=== PATIENT | male | born 1985 | race Two or more races ===

== ENCOUNTER → 2024-08-05 | Outpatient (CLI) | payer BC, SELFPAY ==
[2024-08-05 14:16] LABS: Basophils # (Auto) 0.1 Thou/mm3 (0.0-0.2); Basophils % (Auto) 1 % (0-2.5); Eosinophils # (Auto) 0.1 Thou/mm3 (0.0-0.5); Eosinophils % (Auto) 2 % (0-10); Hematocrit 43.4 % (41.0-53.0); Hemoglobin 15.4 g/dL (13.5-16.0); Immature Granulocytes % (Auto) 1 % (0-0); Immature Granulocytes Auto 0.04 Thou/mm3 (0.00-0.00); Lymphocytes # (Auto) 1.8 Thou/mm3 (1.0-4.8); Lymphocytes % (Auto) 35 % (10-50); Mean Corpuscular HGB Conc 35.5 g/dl (31.0-37.0); Mean Corpuscular Hemoglobin 31.6 pg (25.0-35.0); Mean Corpuscular Volume 89 fL (80-100); Monocytes # (Auto) 0.5 Thou/mm3 (0.0-0.8); Monocytes % (Auto) 11 % (0-12); Neutrophils # (Auto) 2.5 Thou/mm3 (1.8-7.7); Neutrophils % (Auto) 50 % (37-80); Nucleated Red Blood Cell % 0 /100 WBC (0); Platelet Count 244 Thou/mm3 (140-440); RDW Standard Deviation 40.4 fL (35.1-43.9); Red Blood Count 4.87 Miln/mm3 (4.50-5.90)
[2024-08-05 14:33] LABS: Glucose Estimated Average 97 mg/dL (80-131)
[2024-08-05 14:37] LABS: Alanine Aminotransferase 28 U/L (10-49); Albumin, Serum 4.5 gm/dL (3.5-5.0); Albumin/Globulin Ratio 1.8 (1.2-2.2); Alkaline Phosphatase 69 U/L (46-116); Anion Gap 10 (7-16); Aspartate Amino Transferase 11 U/L (0-34); BUN/Creatinine Ratio 17 Ratio (12-20); Bilirubin,Total 1.5 mg/dL (0.3-1.2); Blood Urea Nitrogen 15 mg/dL (9-23); Calcium 8.7 mg/dL (8.3-10.6); Calcium (Corrected) 8.7 mg/dL (8.5-10.1); Carbon Dioxide 26.8 mMol/L (20.0-31.0); Cardiac Risk Estimate 3.2 RATIO (4.0-6.7); Chloride 105 mMol/L (98-107); Cholesterol 220 mg/dL (132-200); Creatinine (Component) 0.9 mg/dL (0.6-1.3); Free T4 (Free Thyroxine) 1.51 ng/dL (0.89-1.76); Globulin 2.5 gm/dL (2.3-3.5); Glucose 102 mg/dL (74-106); HDL Cholesterol 69 mg/dL (40-60); LDL Cholesterol,Calculated 103 mg/dL (0-130); Osmolality,Calculated 283 (275-295); Sodium 142 mMol/L (136-145); Thyroid Stimulating Hormone 1.11 uIU/mL (0.55-4.78); Triglycerides 239 mg/dL (30-150); eGFR > 60 See Note
== END | disposition home or self-care (01) ==
LOC: COPL 13:22
PROVIDERS: PCP Internal Medicine
DX: G47.00 Insomnia, unspecified (principal)
CPT/HCPCS: 36415; 80053; 80061; 83036; 84439; 84443; 85025

== ENCOUNTER 2025-02-07 01:56 | Emergency (ER) | payer BC, SELFPAY ==
[2025-02-07 02:06] VITALS: BP 137/84; PULSE 96; RESP 16; TEMP 36.6; O2SAT 95
[2025-02-07 02:08] VITALS: BMI 27.4
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
[2025-02-07] MEDS: ACETAMINOPHEN 500 MG TABLET 1000 MG PO (02:47)
[2025-02-07] MEDS: IBUPROFEN TAB 600 MG TABLET PO (02:47)
== END 2025-02-07 03:30 ==
PROVIDERS: Emergency Provider Emergency Medicine
DX: Z02.89 Encounter for other administrative examinations (principal); S39.012A Strain of muscle, fascia and tendon of lower back, initial encounter; V89.9XXA Person injured in unspecified vehicle accident, initial encounter
CPT/HCPCS: 72100; 99282; A9270

== ENCOUNTER → 2025-03-15 | Outpatient (CLI) | payer BC, SELFPAY ==
--- NOTE | 2025-03-15 | XR_ITS ---
EXAMINATION: Sinus series 3 views TECHNIQUE: Joshua Morse lateral sinus series 3 views Date and time: March 15, 2025, 11:34 a.m. INDICATIONS: Nasal bone pain years FINDINGS: Mild opacity in the frontal ethmoid air cells, maxillary mucosal thickening up to 12 mm Bowing deformity of the nasal bone but no acute fracture No deviation nasal septum Moderate hypertrophy inferior nasal turbinates IMPRESSION: Chronic sinusitis as above
[2025-03-15 12:06] LABS: Basophils # (Auto) 0.1 Thou/mm3 (0.0-0.2); Basophils % (Auto) 2 % (0-2.5); Eosinophils # (Auto) 0.1 Thou/mm3 (0.0-0.5); Eosinophils % (Auto) 2 % (0-10); Hematocrit 43.6 % (41.0-53.0); Hemoglobin 15.7 g/dL (13.5-16.0); Immature Granulocytes Auto 0.09 Thou/mm3 (0.00-0.00); Lymphocytes # (Auto) 2.3 Thou/mm3 (1.0-4.8); Lymphocytes % (Auto) 42 % (10-50); Mean Corpuscular HGB Conc 36.0 g/dl (31.0-37.0); Mean Corpuscular Hemoglobin 32.0 pg (25.0-35.0); Mean Corpuscular Volume 89 fL (80-100); Monocytes # (Auto) 0.6 Thou/mm3 (0.0-0.8); Monocytes % (Auto) 12 % (0-12); Neutrophils # (Auto) 2.3 Thou/mm3 (1.8-7.7); Neutrophils % (Auto) 42 % (37-80); Nucleated Red Blood Cell # 0.00 Thou/mm3 (0.00-0.00); Nucleated Red Blood Cell % 0 /100 WBC (0); Platelet Count 219 Thou/mm3 (140-440); RDW Standard Deviation 39.1 fL (35.1-43.9); Red Blood Count 4.91 Miln/mm3 (4.50-5.90); White Blood Count 5.4 Thou/mm3 (3.8-10.6)
[2025-03-15 12:18] LABS: Glucose Estimated Average 103 mg/dL (80-131); Hemoglobin A1C 5.2 % Hgb (4.8-6.0)
[2025-03-15 12:35] LABS: Alanine Aminotransferase 41 U/L (10-49); Albumin, Serum 4.5 gm/dL (3.5-5.0); Albumin/Globulin Ratio 1.8 (1.2-2.2); Alkaline Phosphatase 59 U/L (46-116); Anion Gap 11 (7-16); Aspartate Amino Transferase 17 U/L (0-34); BUN/Creatinine Ratio 10 Ratio (12-20); Bilirubin,Total 0.8 mg/dL (0.3-1.2); Blood Urea Nitrogen 9 mg/dL (9-23); Calcium 8.7 mg/dL (8.3-10.6); Calcium (Corrected) 8.7 mg/dL (8.5-10.1); Carbon Dioxide 24.1 mMol/L (20.0-31.0); Cardiac Risk Estimate 3.6 RATIO (4.0-6.7); Chloride 106 mMol/L (98-107); Cholesterol 217 mg/dL (132-200); Creatinine (Component) 0.9 mg/dL (0.6-1.3); Globulin 2.5 gm/dL (2.3-3.5); Glucose 95 mg/dL (74-106); HDL Cholesterol 61 mg/dL (40-60); Osmolality,Calculated 279 (275-295); Potassium 3.5 mMol/L (3.4-5.1); Sodium 141 mMol/L (136-145); Thyroid Stimulating Hormone 1.39 uIU/mL (0.55-4.78); Total Protein 7.0 gm/dL (5.7-8.2); Triglycerides 426 mg/dL (30-150); eGFR > 60 See Note
[2025-03-15 12:38] LABS: Vitamin D 25 Hydroxy Total 37.2 ng/mL (7.3-40.2)
== END | disposition home or self-care (01) ==
LOC: CDIM 11:19 → COPL 11:41
PROVIDERS: PCP Internal Medicine; Referring Provider Internal Medicine; Visit Provider Radiology Diagnostic Radiology
DX: J32.9 Chronic sinusitis, unspecified (principal); E55.9 Vitamin D deficiency, unspecified; E78.2 Mixed hyperlipidemia; I10 Essential (primary) hypertension
CPT/HCPCS: 36415; 70220; 80053; 80061; 82306; 83036; 84443; 85025